=== PATIENT | female | born 1955 | race Caucasian/White ===

== ENCOUNTER → 2019-07-07 | Outpatient (CLI) | payer BC | LOC: CARD 08:52 | PROVIDERS: ATTEND Internal Medicine Cardiovascular Disease | DX: I35.1 Nonrheumatic aortic (valve) insufficiency (principal); I10 Essential (primary) hypertension; E78.5 Hyperlipidemia, unspecified; I65.23 Occlusion and stenosis of bilateral carotid arteries; Z87.891 Personal history of nicotine dependence | CPT/HCPCS: 93306 ==

== ENCOUNTER → 2019-07-25 | Outpatient (CLI) | payer BC ==
[~2019-07-25] VITALS: Ht 165 cm; Wt 81.0 kg
[~2019-07-25] MED LIST: REGADENOSON 0.4 MG/5 ML SYR (LEXISCAN) IV ONE
[2019-07-25] MEDS: CATHETER FLUSH 10 ML SYR IV PRN ×2 (07:30→07:43)
[2019-07-25 08:51] VITALS: BP 148/79
--- NOTE | 2019-07-26 09:40 | STRESS TEST ---
DATE OF SERVICE: 07/25/2019 RESTING AND POST REGADENOSON TECHNETIUM-99M TETROFOSMIN SPECT CT IMAGING. CLINICAL DIAGNOSIS: Chest discomfort. ORDERING PHYSICIAN: Dr. Mobley. PRIMARY PHYSICIAN: Dr. Jama. CLINICAL DIAGNOSIS: Baseline images were carried out after injection of 10.10 mCi of technetium-99m Tetrofosmin. This was followed by 0.4 mg Regadenoson and 30 mCi of technetium-99m Tetrofosmin for stress imaging. The electrocardiogram showed sinus rhythm at baseline and it did not change significantly with Regadenoson infusion. The patient tolerated the procedure well. Review of images at rest and following stress indicates a small anteroapical perfusion defect that appears transient. Gated images show normal global left ventricular systolic function, normal regional wall motion. Left ventricular ejection fraction is calculated to be 80%. Left ventricular end diastolic volume is 36 mL. TID is absent (1.07). CONCLUSIONS: 1. Small amount of anteroapical ischemia is indicated on this study. 2. No regional wall motion abnormality. 3. Normal to hyperdynamic left ventricular systolic function with a calculated ejection fraction of 80%. Job ID: [id number] DocumentID: [id number] Dictated Date: 07/26/2019 08:36:00 Motor Vehicle License Clerk Date: 07/26/2019 09:39:53 Dictated By: JENNA MOBLEY MD, MA, FACP, FACC,
== END ==
LOC: CARD 07:04
PROVIDERS: ATTEND Internal Medicine Cardiovascular Disease
DX: I25.89 Other forms of chronic ischemic heart disease (principal); I10 Essential (primary) hypertension; E78.5 Hyperlipidemia, unspecified; I65.29 Occlusion and stenosis of unspecified carotid artery; Z87.891 Personal history of nicotine dependence
CPT/HCPCS: 78452; 93017

== ENCOUNTER 2019-11-07 09:49 | Day surgery (SDC) | payer BC ==
[2019-11-07] VITALS (10 sets, daily range): BP systolic 127–152; BP diastolic 60–85
[~2019-11-07] VITALS: Ht 165 cm; Wt 82.0 kg
[2019-11-07] MEDS ORDERED: HEParin (CATH LAB) 2,000 ML IV ONE (10:00)
[2019-11-07] MEDS ORDERED: LIDOCAINE 1% INJ 20 ML 20 ML VIAL ONE (10:00)
[2019-11-07] MEDS ORDERED: NS IV 1000 ML 1,000 ML ONE (10:00)
[2019-11-07] MEDS ORDERED: NS IV 1000 ML 1,000 ML IV SCH ×2 (10:15→14:15)
[2019-11-07 10:28] LABS: HEMOGLOBIN 12.2 G/DL (11.5-16.0); RED CELL DISTRIBUTION WIDTH 13.8 % (10.0-14.5); WHITE BLOOD COUNT 4.1 10^3/uL (4.3-11.0)
[2019-11-07] MEDS ORDERED: FIBER CHOICE PO (10:40)
[2019-11-07] MEDS ORDERED: MTP100TCR PO (10:40)
[2019-11-07] MEDS ORDERED: ASPI-999 PO (10:40)
[2019-11-07] MEDS ORDERED: AMLO5TAB9 PO (10:40)
[2019-11-07] MEDS ORDERED: MULT-1136 PO ×2 (10:44→10:47)
[2019-11-07] MEDS ORDERED: NF-ESOM40C PO (10:44)
[2019-11-07] MEDS ORDERED: LORA-404 PO (10:44)
[2019-11-07] MEDS ORDERED: TRAM50TA3 PO (10:44)
[2019-11-07] MEDS ORDERED: FEXO1TAB43 PO (10:44)
[2019-11-07] MEDS ORDERED: MIRA50TA PO (10:44)
[2019-11-07] MEDS ORDERED: IRON45TA6 PO (10:44)
[2019-11-07] MEDS ORDERED: ROSU10TA22 PO (10:45)
[2019-11-07] MEDS ORDERED: ESCI10TA PO (10:45)
[2019-11-07 10:50] LABS: INR 0.9 (0.8-1.4); PROTHROMBIN TIME PATIENT 12.5 SEC (12.2-14.7)
[2019-11-07 10:56] LABS: ALANINE AMINOTRANSFERASE 26 U/L (0-55); ALBUMIN 4.4 GM/DL (3.2-4.5); ALKALINE PHOSPHATASE 84 U/L (40-136); BILIRUBIN,TOTAL 0.5 MG/DL (0.1-1.0); BUN/CREATININE RATIO 14; CALCIUM 9.3 MG/DL (8.5-10.1); CARBON DIOXIDE 28 MMOL/L (21-32); CHLORIDE 107 MMOL/L (98-107); CHOLESTEROL 142 MG/DL (< 200); CREATININE SERUM 0.83 MG/DL (0.60-1.30); GFR ESTIMATED > 60; GLUCOSE 127 MG/DL (70-105); HDL CHOLESTEROL 47 MG/DL (40-60); POTASSIUM 3.9 MMOL/L (3.6-5.0); SODIUM 144 MMOL/L (135-145); TOTAL PROTEIN 7.1 GM/DL (6.4-8.2); TRIGLYCERIDES 112 MG/DL (<150); VLDL CHOLESTEROL 22 MG/DL (5-40)
--- OUTSIDE RECORDS SUMMARY | 2019-11-07 11:05 | XMS REPORT | Continuity of Care Document ---
Demographics Preferred Language Unknown Marital Status Unknown Orthodox Affiliation Unknown Race Unknown Ethnic Group Unknown Author Organization Unknown Address Unknown Phone Unavailable Allergies Active Description Code Type Severity Reaction Onset Reported/Identified Relationship to Patient Clinical Status Yes NO KNOWN DRUG ALLERGIES NO KNOWN DRUG ALLERG UNKNOWN Yes NO KNOWN DRUG ALLERGIES UNKNOWN NO KNOWN DRUG ALLERG Yes NO KNOWN DRUG ALLERGIES UNKNOWN UNKNOWN Yes No Allergy Information Available [id number] Drug Allergy Unknown N/A 020 Medications Medication Packaging Start Date St op Date Route Dosage Sig ONDANSETRON VIAL INJ 4 MG/2CC (ZOFRAN 2CC VIAL) MG 06/08/2016 06/15/2016 PRN Q4H KETOROLAC VIAL INJ 30 MG/CC (TORADOL VIAL) MG 06/08/2016 06/08/2016 ONCE&1220 NORMAL SALINE 1000CC IV BAG INJ 0.9 % (NS 1000CC IV BAG) ml 06/08/2016 06/08/2016 ONCE&1323 ACETAMINOPHEN ORAL TABLET 325mg(Tylenol) MG 06/08/2016 06/08/2016 PRN ONCE Problems Date Dx Coded Attending Type Code Diagnosis Diagnosed By 08/02/2013 JOON BUSTAMANTE Ot 288.50 LEUKOCYTOPENIA, UNSPECIFIED 02/24/2016 Ot 288.50 PACHECO KOCYTOPENIA, UNSPECIFIED 02/28/2016 Ot 288.50 PACHECO KOCYTOPENIA, UNSPECIFIED 03/04/2016 Ot 288.50 PACHECO KOCYTOPENIA, UNSPECIFIED 06/08/2016 Maria Ines Jama 346.90 MIGRAINE, UNSPECIFIED, WITHOUT MENTION OF INTRACTABLE MIGRAINE, WITHOUT MENTION OF STATUS MIGRAINOSUS 06/08/2016 Maria Ines Jama 461.9 ACUTE SINUSITIS, UNSPECIFIED 06/08/2016 Maria Ines Jama G43.909 MIGRAINE, UNSP, NOT INTRACTABLE, WITHOUT STATUS MIGRAINOSUS 06/08/2016 Maria Ines Jama J01.90 ACUTE SINUSITIS, UNSPECIFIED 03/15/2017 W 250.00 LACEY BETES MELLITUS WITHOUT MENTION OF COMPLICATION, TYPE II OR UNSPECIFIED TYPE, NOT STATED UNCONTROLLED 03/15/2017 W 272.4 OTHE R AND UNSPECIFIED HYPERLIPIDEMIA 03/15/2017 W 796.4 OTHE R ABNORMAL CLINICAL FINDINGS 03/15/2017 W D72.819 DE CREASED WHITE BLOOD CELL COUNT, UNSPECIFIED 03/15/2017 W E11.9 TYPE 2 DIABETES MELLITUS WITHOUT COMPLICATIONS 03/15/2017 W E78.5 HYPE RLIPIDEMIA, UNSPECIFIED 04/12/2017 A 461.9 ACUT E SINUSITIS, UNSPECIFIED 04/12/2017 W 780.79 OTH ER MALAISE AND FATIGUE 04/12/2017 W 796.4 OTHE R ABNORMAL CLINICAL FINDINGS 04/12/2017 A J01.90 ACU TE SINUSITIS, UNSPECIFIED 04/12/2017 W R53.83 OTH ER FATIGUE 05/20/2017 Wiley Maria Ines W 250.00 DIABETES MELLITUS WITHOUT MENTION OF COMPLICATION, TYPE II OR UNSPECIFIED TYPE, NOT STATED UNCONTROLLED 05/20/2017 Wiley Maria Ines W 272.4 OTHER AND UNSPECIFIED HYPERLIPIDEMIA 05/20/2017 Wiley Maria Ines W 796.4 OTHER ABNORMAL CLINICAL FINDINGS 05/20/2017 Wiley Maria Ines W D72.819 DECREASED WHITE BLOOD CELL COUNT, UNSPECIFIED 05/20/2017 Wiley Maria Ines W E11.9 TYPE 2 DIABETES MELLITUS WITHOUT COMPLICATIONS 05/20/2017 Wiley, Maria Ines W E78.5 HYPERLIPIDEMIA, UNSPECIFIED 05/20/2017 Wiley, Maria Ines W 250.00 DIABETES MELLITUS WITHOUT MENTION OF COMPLICATION, TYPE II OR UNSPECIFIED TYPE, NOT STATED UNCONTROLLED 05/20/2017 Wiley Maria Ines W 272.4 OTHER AND UNSPECIFIED HYPERLIPIDEMIA 05/20/2017 Wiley Maria Ines W 796.4 OTHER ABNORMAL CLINICAL FINDINGS 05/20/2017 Wiley Maria Ines W D72.819 DECREASED WHITE BLOOD CELL COUNT, UNSPECIFIED 05/20/2017 Wiley Maria Ines W E11.9 TYPE 2 DIABETES MELLITUS WITHOUT COMPLICATIONS 05/20/2017 Maria Ines Jama W E78.5 HYPERLIPIDEMIA, UNSPECIFIED 06/14/2017 Michelle Jamaa W 780.79 OTHER MALAISE AND FATIGUE 06/14/2017 Wiley Maria Ines W R53.83 OTHER FATIGUE 06/14/2017 Michelle Jamaa W 780.79 OTHER MALAISE AND FATIGUE 06/14/2017 Wiley Maria Ines W R53.83 OTHER FATIGUE 10/04/2017 Maria Ines Jama W 796.4 OTHER ABNORMAL CLINICAL FINDINGS 10/04/2017 Wiley, Maria Ines W 796.4 OTHER ABNORMAL CLINICAL FINDINGS 11/12/2017 Wiley, Maria Ines W 401.9 UNSPECIFIED ESSENTIAL HYPERTENSION 11/12/2017 Wiley, Maria Ines W I10 ESSENTIAL (PRIMARY) HYPERTENSION 11/12/2017 W 401.9 UNSP ECIFIED ESSENTIAL HYPERTENSION 11/12/2017 W 789.00 ABD OMINAL PAIN, UNSPECIFIED SITE 11/12/2017 W I10 ESSENT IAL (PRIMARY) HYPERTENSION 11/12/2017 W R10.13 EPI GASTRIC PAIN 11/12/2017 Wiley, Maria Ines W 401.9 UNSPECIFIED ESSENTIAL HYPERTENSION 11/12/2017 Wiley, Maria Ines W I10 ESSENTIAL (PRIMARY) HYPERTENSION 11/16/2017 Wiley, Maria Ines W 789.00 ABDOMINAL PAIN, UNSPECIFIED SITE 11/16/2017 Wiley, Maria Ines W R10.13 EPIGASTRIC PAIN 11/16/2017 Wiley, Maria Ines W 789.00 ABDOMINAL PAIN, UNSPECIFIED SITE 11/16/2017 Wiley, Maria Ines W R10.13 EPIGASTRIC PAIN 11/19/2017 Wiley, Maria Ines W 401.9 UNSPECIFIED ESSENTIAL HYPERTENSION 11/19/2017 Wiley, Maria Ines W 789.00 ABDOMINAL PAIN, UNSPECIFIED SITE 11/19/2017 Wiley, Maria Ines W I10 ESSENTIAL (PRIMARY) HYPERTENSION 11/19/2017 Wiley, Maria Ines W R10.13 EPIGASTRIC PAIN 11/19/2017 Wiley, Maria Ines W 401.9 UNSPECIFIED ESSENTIAL HYPERTENSION 11/19/2017 Wiley, Maria Ines W 789.00 ABDOMINAL PAIN, UNSPECIFIED SITE 11/19/2017 Wiley, Maria Ines W I10 ESSENTIAL (PRIMARY) HYPERTENSION 11/19/2017 Wiley, Maria Ines W R10.13 EPIGASTRIC PAIN 06/27/2019 Ot 288.50 PACHECO KOCYTOPENIA, UNSPECIFIED 07/07/2019 Ot 288.50 PACHECO KOCYTOPENIA, UNSPECIFIED 07/11/2019 SMITA RAMIREZ FACC, JENNA TURNERP CCDS Ot E78.5 HYPERLIPIDEMIA, UNSPECIFIED 07/11/2019 SMITA RAMIREZ FACC, JENNA TURNERP CCDS Ot I10 ESSENTIAL (PRIMARY) HYPERTENSION 07/11/2019 SMITA RAMIREZ FACC, JENNA OLIVER CCDS Ot I35.1 NONRHEUMATIC AORTIC (VALVE) INSUFFICIENC 07/11/2019 SMITA RAMIREZ [facility], ALI FACP CCDS Ot I65.23 OCCLUSION AND STENOSIS OF BILATERAL [place] 07/11/2019 SMITA RAMIREZ [facility], ALI FACP CCDS Ot Z87.891 PERSONAL HISTORY OF NICOTINE DEPENDENCE 07/20/2019 SMITA RAMIREZ FACC, ALI FACP CCDS Ot E78.5 HYPERLIPIDEMIA, UNSPECIFIED 07/20/2019 SMITA RAMIREZ FACC, ALI FACP CCDS Ot I10 ESSENTIAL (PRIMARY) HYPERTENSION 07/20/2019 SMITA RAMIREZ [facility], ALI FACP CCDS Ot I35.1 NONRHEUMATIC AORTIC (VALVE) INSUFFICIENC 07/20/2019 SMITA RAMIREZ [facility], ALI FACP CCDS Ot I65.23 OCCLUSION AND STENOSIS OF BILATERAL [place] 07/20/2019 SMITA RAMIREZ [facility], ALI FACP CCDS Ot Z87.891 PERSONAL HISTORY OF NICOTINE DEPENDENCE 07/24/2019 Ot 288.50 PACHECO KOCYTOPENIA, UNSPECIFIED 07/24/2019 SMITA RAMIREZ [facility], ALI FACP CCDS Ot E78.5 HYPERLIPIDEMIA, UNSPECIFIED 07/24/2019 SMITA RAMIREZ [facility], ALI FACP CCDS Ot I10 ESSENTIAL (PRIMARY) HYPERTENSION 07/24/2019 SMITA RAMIREZ [facility], ALI FACP CCDS Ot I35.1 NONRHEUMATIC AORTIC (VALVE) INSUFFICIENC 07/24/2019 SMITA RAMIREZ [facility], ALI FACP CCDS Ot I65.23 OCCLUSION AND STENOSIS OF BILATERAL [place] 07/24/2019 SMITA RAMIREZ [facility], ALI FACP CCDS Ot Z87.891 PERSONAL HISTORY OF NICOTINE DEPENDENCE 07/25/2019 Ot 288.50 PACHECO KOCYTOPENIA, UNSPECIFIED 07/27/2019 SMITA RAMIREZ [facility], ALI FACP CCDS Ot E78.5 HYPERLIPIDEMIA, UNSPECIFIED 07/27/2019 SMITA RAMIREZ [facility], ALI FACP CCDS Ot I10 ESSENTIAL (PRIMARY) HYPERTENSION 07/27/2019 SMITA RAMIREZ [facility], ALI FACP CCDS Ot I25.89 OTHER FORMS OF CHRONIC ISCHEMIC HEART DI 07/27/2019 SMITA RAMIREZ FACC, ALI FACP CCDS Ot I65.29 OCCLUSION AND STENOSIS OF UNSPECIFIED CA 07/27/2019 SMITA RAMIREZ [facility], ALI FACP CCDS Ot Z87.891 PERSONAL HISTORY OF NICOTINE DEPENDENCE 07/31/2019 [facility], ALI FACP CCDS Ot E78.5 HYPERLIPIDEMIA, UNSPECIFIED 07/31/2019 [facility], [facility] FACP CCDS Ot I10 ESSENTIAL (PRIMARY) HYPERTENSION 07/31/2019 [facility], ALI FACP CCDS Ot I25.89 OTHER FORMS OF CHRONIC ISCHEMIC HEART DI 07/31/2019 [facility], ALI FACP CCDS Ot I65.29 OCCLUSION AND STENOSIS OF UNSPECIFIED CA 07/31/2019 [facility], ALI FACP CCDS Ot Z87.891 PERSONAL HISTORY OF NICOTINE DEPENDENCE 08/07/2019 [facility], ALI FACP CCDS Ot E78.5 HYPERLIPIDEMIA, UNSPECIFIED 08/07/2019 [facility], ALI FACP CCDS Ot I10 ESSENTIAL (PRIMARY) HYPERTENSION 08/07/2019 [facility], ALI FACP CCDS Ot I25.89 OTHER FORMS OF CHRONIC ISCHEMIC HEART DI 08/07/2019 [facility], ALI FACP CCDS Ot I65.23 OCCLUSION AND STENOSIS OF BILATERAL [place] 08/07/2019 [facility], ALI FACP CCDS Ot Z87.891 PERSONAL HISTORY OF NICOTINE DEPENDENCE 08/25/2019 [facility], ALI FACP CCDS Ot E78.5 HYPERLIPIDEMIA, UNSPECIFIED 08/25/2019 [facility], ALI FACP CCDS Ot I10 ESSENTIAL (PRIMARY) HYPERTENSION 08/25/2019 [facility], ALI FACP CCDS Ot I25.89 OTHER FORMS OF CHRONIC ISCHEMIC HEART DI 08/25/2019 [facility], ALI FACP CCDS Ot I65.23 OCCLUSION AND STENOSIS OF BILATERAL [place] 08/25/2019 [facility], ALI FACP CCDS Ot Z87.891 PERSONAL HISTORY OF NICOTINE DEPENDENCE Procedures There is no data. Results Test Result Range Comprehensive Metabolic Panel - 04/26/16 09:50 Albumin 4.4 g/dL 3.6-5.1 ALP 71 U/L 35-130 ALT 23 U/L 6-45 Anion Gap 15 6-14 AST 24 U/L 2-40 BUN 11 mg/dL 5-25 Calcium 9.4 mg/dL 8.3-10.4 Chloride 108 mmol/L 95-114 CO2 24 mEq/L 22-33 Creat 0.80 mg/dL 0.50-1.50 eGFR 73 mL/min/1.73m2 >59 Globulin 2.1 g/dL 2.3-3.5 Glucose 125 mg/dL 70-110 Osmo 294 280-295 Potassium 4.5 mmol/L 3.5-5.3 Sodium 142 mmol/L 134-148 TBil 0.5 mg/dL 0.2-1.2 TP 6.5 g/dL 6.0-8.3 Lipid Panel - 04/26/16 09:50 C/HDL 3.4 3.7-6.7 Cholesterol 149 mg/dL 100-240 HDL 44 mg/dL 30-85 LDL-Calculated 79 mg/dL 0-100 Trig 128 mg/dL 35-160 VLDL 26 mg/dL 0-42 Comprehensive Metabolic Panel - 06/08/16 12:29 Albumin 4.5 g/dL 3.6-5.1 ALP 61 U/L 35-130 ALT 24 U/L 6-45 Anion Gap 16 6-14 AST 22 U/L 2-40 BUN 9 mg/dL 5-25 Calcium 9.4 mg/dL 8.3-10.4 Chloride 105 mmol/L 95-114 CO2 25 mEq/L 22-33 Creat 0.78 mg/dL 0.50-1.50 eGFR 75 mL/min/1.73m2 >59 Globulin 2.6 g/dL 2.3-3.5 Glucose 105 mg/dL 70-110 Osmo 292 280-295 Potassium 3.9 mmol/L 3.5-5.3 Sodium 142 mmol/L 134-148 TBil 0.7 mg/dL 0.2-1.2 TP 7.1 g/dL 6.0-8.3 Peripheral Smear - 09/30/16 10:55 Peripheral smear Sent to [facility] for rev iew Hemoglobin A1C - 12/11/16 06:55 % A1C 6.40 % 5.40-6.60 AvGlu 149 mg/dL 70-110 Pap IG, rfx HPV ASCU - 03/15/17 17:35 DIAGNOSIS: Comment Specimen adequacy: Comment Performed by: Comment . . Note: Comment Test Methodology: TNP . Comment Lipid Panel - 05/20/17 11:10 C/HDL 4.0 3.7-6.7 Cholesterol 182 mg/dL 100-240 HDL 46 mg/dL 30-85 LDL-Calculated 101 mg/dL 0-100 Trig 175 mg/dL 35-160 VLDL 35 mg/dL 0-42 VIT B-12 - 06/14/17 07:08 Vitamin B12 370.00 pg/mL 213.00-816.00 CBC with Auto Diff - 10/04/17 16:42 Baso% 0.90 % 0.00-2.50 Eos 0.1 K/uL 0.0-0.7 Eos% 2.7 % 0.0-7.0 Hct 37.6 % 36.0-46.0 Hgb 12.5 g/dL 13.0-15.0 Lym 1.07 K/uL 0.60-3.40 Lym% 32.3 % 10.0-50.0 MCH 29.8 pg 27.0-31.0 MCHC 33.2 g/dL 32.0-36.0 MCV 89.5 fL 80.0-97.0 [place]% 13.0 % 0.0-12.0 MPV 9.9 fL 7.4-10.0 Darrel% 51.1 % 37.0-80.0 Plt 329 K/uL 150-400 RBC 4.20 M/uL 3.60-5.00 RDW 12.8 % 11.6-14.8 WBC 3.31 K/uL 5.00-10.00 Darrel 1.69 K/uL 2.00-6.90 [place] 0.4 K/uL 0.0-0.9 Baso 0.0 K/uL 0.0-0.2 BMP - 11/12/17 10:52 Anion Gap 17 6-14 BUN 15 mg/dL 5-25 Calcium 9.4 mg/dL 8.3-10.4 Chloride 104 mmol/L 95-114 CO2 25 mEq/L 22-33 Creat 0.79 mg/dL 0.50-1.50 eGFR 74 mL/min/1.73m2 >59 Glucose 100 mg/dL 70-110 Osmo 294 280-295 Potassium 3.6 mmol/L 3.5-5.3 Sodium 142 mmol/L 134-148 Renal Panel - 11/19/17 07:16 Albumin 4.3 g/dL 3.6-5.1 BUN 11 mg/dL 5-25 Calcium 9.5 mg/dL 8.3-10.4 Chloride 106 mmol/L 95-114 CO2 24 mEq/L 22-33 Creat 0.84 mg/dL 0.50-1.50 eGFR 69 mL/min/1.73m2 >59 Glucose 133 mg/dL 70-110 Phosphorus 4.0 mg/dL 2.5-4.8 Potassium 4.2 mmol/L 3.5-5.3 Sodium 142 mmol/L 134-148 Thyroid Stimulating Hormone - 10/12/18 1 2:35 TSH 1.65 mIU/mL 0.32-5.00 Thyroid Stimulating Hormone - 03/31/19 1 0:48 TSH 0.98 mIU/mL 0.32-5.00 CBC with Auto Diff - 05/23/19 12:54 Baso% 0.60 % 0.00-2.50 Eos 0.1 K/uL 0.0-0.7 Eos% 2.6 % 0.0-7.0 Hct 37.3 % 36.0-46.0 Hgb 12.4 g/dL 13.0-15.0 Lym 0.83 K/uL 0.60-3.40 Lym% 24.1 % 10.0-50.0 MCH 30.7 pg 27.0-31.0 MCHC 33.2 g/dL 32.0-36.0 MCV 92.3 fL 80.0-97.0 [place]% 11.0 % 0.0-12.0 MPV 10.4 fL 7.4-10.0 Darrel% 61.7 % 37.0-80.0 Plt 310 K/uL 150-400 RBC 4.04 M/uL 3.60-5.00 RDW 12.8 % 11.6-14.8 WBC 3.44 K/uL 5.00-10.00 Darrel 2.12 K/uL 2.00-6.90 [place] 0.4 K/uL 0.0-0.9 Baso 0.0 K/uL 0.0-0.2 Comprehensive Metabolic Panel - 10/25/19 15:21 Albumin 4.4 g/dL 3.6-5.1 ALP 79 U/L 35-130 ALT 22 U/L 6-45 Anion Gap 14 6-14 AST 21 U/L 2-40 BUN 17 mg/dL 5-25 Calcium 8.8 mg/dL 8.3-10.4 Chloride 106 mmol/L 95-114 CO2 27 mEq/L 22-33 Creat 0.75 mg/dL 0.50-1.50 eGFR 78 mL/min/1.73m2 >59 Globulin 2.3 g/dL 2.3-3.5 Glucose 88 mg/dL 70-110 Osmo 296 280-295 Potassium 4.0 mmol/L 3.5-5.3 Sodium 143 mmol/L 134-148 TBil 0.4 mg/dL 0.2-1.2 TP 6.7 g/dL 6.0-8.3 Automated blood complete blood count (he mogram) panel - 11/07/19 10:21 Blood leukocytes automated count (number/volume) 4.1 10*3/uL 4.3-11.0 Blood erythrocytes automated count (number/volume) 4.20 10*6/uL 4.35-5.85 Venous blood hemoglobin measurement (mass/volume) 12.2 g/dL 11.5-16.0 Blood hematocrit (volume fraction) 38 % 35-52 Automated erythrocyte mean corpuscular volume 90 [ foz_us] 80-99 Automated erythrocyte mean corpuscular h emoglobin (mass per erythrocyte) 29 pg 25-34 Automated erythrocyte mean corpuscular h emoglobin concentration measurement (mass/volume) 32 g/dL 32-36 Automated erythrocyte distribution width ratio 13. 8 % 10.0- 14.5 Automated blood platelet count (count/volume) 326 10*3/uL 130-400 Automated blood platelet mean volume measurement 10.0 [foz_us] 7.4-10.4 Comprehensive metabolic panel - 11/07/19 10:21 Serum or plasma sodium measurement (moles/volume) 144 mmol/L 135-145 Serum or plasma potassium measurement (moles/volume) 3.9 mmol/L 3.6-5.0 Serum or plasma chloride measurement (moles/volume) 107 mmol/L 98-107 Carbon dioxide 28 mmol/L 21-32 Serum or plasma anion gap determination (moles/volume) 9 mmol/L 5-14 Serum or plasma urea nitrogen measurement (mass/volume ) 12 mg/dL 7-18 Serum or plasma creatinine measurement (mass/volume) 0.83 mg/dL 0.60-1.30 Serum or plasma urea nitrogen/creatinine mass ratio 14 NRG Serum or plasma creatinine measurement w ith calculation of estimated glomerular filtration rate > NRG Serum or plasma glucose measurement (mass/volume) 127 mg/dL 70-105 Serum or plasma calcium measurement (mass/volume) 9.3 mg/dL 8.5-10.1 Serum or plasma total bilirubin measurement (mass/volu me) 0.5 mg/dL 0.1-1.0 Serum or plasma alkaline phosphatase toby surement (enzymatic activity/volume) 84 U/L 40-136 Serum or plasma aspartate aminotransfera se measurement (enzymatic activity/volume) 25 U/L 5-34 Serum or plasma alanine aminotransferase measurement (enzymatic activity/volume) 26 U/L 0-55 Serum or plasma protein measurement (mass/volume) 7.1 g/dL 6.4-8.2 Serum or plasma albumin measurement (mass/volume) 4.4 g/dL 3.2-4.5 CALCIUM CORRECTED 9.0 mg/dL 8.5-10.1 Lipid 1996 panel - 11/07/19 10:21 Serum or plasma triglyceride measurement (mass/volume) 112 mg/dL <150 Serum or plasma cholesterol measurement (mass/volume) 142 mg/dL < 200 Serum or plasma cholesterol in HDL measurement (mass/v olume) 47 mg/dL 40-60 Cholesterol in LDL [mass/volume] in serum or plasma by direct assay 92 mg/dL 1-129 Serum or plasma cholesterol in VLDL measurement (mass/ volume) 22 mg/dL 5-40 PT panel in platelet poor plasma by coag ulation assay - 11/07/19 10:21 Prothrombin time (PT) in platelet poor plasma by coagu lation assay 12.5 s 12.2-14.7 INR in platelet poor plasma or blood by coagulation as say 0.9 0.8-1.4 Activated partial thromboplastin time (a PTT) in platelet poor plasma bycoagulation assay - 11/07/19 10:21 Activated partial thromboplastin time (a PTT) in platelet poor plasma bycoagulation assay 30 s 24-35 Encounters ACCT No. Visit Date/Time Discharge Status Pt. Type Provider Facility Loc./Unit Complaint [id number] 03/19/2017 14:17:00 Document Registration [id number] 07/25/2019 07:04:00 020 23:59:59 CLS Outpatient SMITA RAMIREZ FACC, ALI FACP CC DS Via [facility] CARD CHEST DISCOMFORT,HYPERTENSION [id number] 07/07/2019 08:52:00 020 23:59:59 CLS Outpatient SMITA RAMIREZ FACDanay, JENNA OLIVER CC DS [facility] CARD CHEST DISCOMFORT,HYPERTENSION [id number] 05/04/2013 13:32:00 014 00:01:00 DIS Outpatient DIANNA JOON Muse ia [facility] ONC [id number] 11/29/2012 17:38:00 013 23:59:59 CLS Outpatient [id number] 10/12/2012 17:20:00 013 23:59:59 CLS Outpatient [id number] 11/07/2019 12:00:00 P EN Preadmit SMITA RAMIREZ FACC, JENNA OLIVER CCDS [facility] CATH ANGINA,SOB,ABN STRESS TEST,H TN,FATIGUE [id number] 03/01/2014 00:00:00 Document Registration [id number] 10/25/2019 15:11:00 10/25/2019 23:59 :00 DIS Outpatient Maria Ines Jama [id number] 10/25/2019 13:50:00 10/25/2019 23:59 :00 DIS Outpatient Maria Ines Jama [id number] 05/23/2019 12:49:00 05/23/2019 23:59 :00 DIS Outpatient Maria Ines Jama [id number] 03/31/2019 10:44:00 03/31/2019 23:59: 00 DIS Outpatient Cristy Arevalo [id number] 03/31/2019 08:59:00 03/31/2019 23:59: 00 DIS Outpatient Cristy Arevalo [id number] 10/12/2018 12:26:00 10/12/2018 23:59: 00 DIS Outpatient Maria Ines Jama [id number] 11/19/2017 07:12:00 11/19/2017 23:59: 00 DIS Outpatient Maria Ines Jama [id number] 11/16/2017 09:02:00 11/16/2017 23:59: 00 DIS Outpatient Maria Ines Jama [id number] 11/12/2017 10:50:00 11/12/2017 23:59: 00 DIS Outpatient Maria Ines Jama [id number] 10/04/2017 16:29:00 10/04/2017 23:59: 00 DIS Outpatient Maria Ines Jama [id number] 06/14/2017 07:05:00 06/14/2017 23:59: 00 DIS Outpatient Maria Ines Jama [id number] 05/20/2017 11:01:00 05/20/2017 23:59: 00 DIS Outpatient Maria Ines Jama [id number] 03/15/2017 18:31:00 03/15/2017 23:59: 00 DIS Outpatient Maria Ines Jama [id number] 03/15/2017 13:03:00 03/15/2017 23:59: 00 DIS Outpatient Maria Ines Jama [id number] 12/11/2016 06:49:00 12/11/2016 23:59: 00 DIS Outpatient Maria Ines Jama [id number] 10/01/2016 08:33:00 10/01/2016 23:59: 00 DIS Outpatient Maria Ines Jama [id number] 09/30/2016 10:49:00 09/30/2016 23:59: 00 DIS Outpatient Maria Ines Jama [id number] 06/08/2016 12:17:00 06/08/2016 16:50: 00 DIS Outpatient Maria Ines Jama [id number] 04/26/2016 09:49:00 04/26/2016 23:59: 00 DIS Outpatient Maria Ines Jama [id number] 02/27/2019 17:52:03 Document Registration [id number] 11/12/2017 10:01:00 Document Registration [id number] 03/15/2017 11:15:00 Document Registration [id number] 06/08/2016 13:24:30 Document Registration
[2019-11-07] MEDS ORDERED: MIDAZOLAM 5 MG/5 ML (VERSED) VIAL ONE (13:26)
[2019-11-07] MEDS ORDERED: fentaNYL INJECTION 100 MCG/2 ML AMP ONE (13:26)
[2019-11-07] MEDS ORDERED: PATIENT MAY USE OWN MEDS, ALL PO SCH (14:15)
--- NOTE | 2019-11-07 14:15 | Cardiac Procedure Note-CS/ASA ---
Pre-Procedure Note Pre-Op Procedure Note H&P Reviewed The H&P was reviewed, patient examined and no changes noted. Date H&P Reviewed: Nov 07, 2019 Time H&P Reviewed: 13:30 Conscious Sedation Pre-Proced Time 13:30 ASA Score 3 For ASA 3 and 4: Consider anesthesia and medical clearance. Also, for patients with a history of failed moderate sedation consider anesthesia. Airway Lungs Heart ASA score ASA 1: a normal healthy patient ASA 2: a patient with a mild systemic disease (mid diabetes, controlled hypertension, obesity ASA 3: a patient with a severe systemic disease that limits activity (angina, COPD, prior Myocardial infarction) ASA 4: a patient with an incapacitating disease that is a constant threat to life (CHF, renal failure) ASA 5: a moribund patient not expected to survive 24 hrs. (ruptured aneurysm) ASA 6: a declared brain- patient whose organs are being harvested. For emergent operations, add the letter E after the classification Mallampati Classification Grade 2 Sedation Plan Analgesia, Amnesia, Plan communicated to team members, Discussed options with patient/fam, Discussed risks with patient/fam The patient is an appropriate candidate to undergo the planned procedure, sedation, and anesthesia. The patient immediately re-assessed prior to indication. JENNA ORDOÑEZ MD FACP FAC CCDS Nov 07, 2019 14:14
--- NOTE | 2019-11-07 14:21 | Discharge Inst-Cardiology ---
Discharge Inst-Cardiac Discharge Medications Continued Medications: Amlodipine Besylate (Amlodipine Besylate) 5 Mg Tablet 5 MG PO DAILY, TAB Aspirin (Aspirin) 81 Mg Tab.chew 81 MG PO DAILY, TAB Escitalopram Oxalate (Lexapro) 10 Mg Tablet 10 MG PO DAILY, TAB Esomeprazole Magnesium (Nexium) 40 Mg Cap 40 MG PO DAILY, CAP Fexofenadine/Pseudoephedrine (Ashley-D 24 Hour Tablet) 1 Each Tab.er.24h 1 EACH PO DAILY, TAB [Fiber Choice] () 1.5 GM PO DAILY Iron,Carbonyl (Feosol) 45 Mg Tablet 45 MG PO DAILY, TAB Lorazepam (Ativan) 0.5 Mg Tablet 0.5 MG PO DAILY, TAB Metoprolol Succinate (Metoprolol Succinate) 100 Mg Tab.er.24h 100 MG PO DAILY, TAB Mirabegron (Myrbetriq) 50 Mg Tab.er.24h 50 MG PO DAILY, TAB Multivitamin (Multivitamin) 1 Each Tablet 1 EACH PO DAILY, TAB Rosuvastatin Calcium (Crestor) 10 Mg Tablet 10 MG PO DAILY, TAB Tramadol HCl (Tramadol HCl) 50 Mg Tablet 50 MG PO DAILY, TAB JENNA ORDOÑEZ MD FACP FACC CCDS Nov 07, 2019 14:21
--- NOTE | 2019-11-07 14:21 | Discharge Inst-Post CATH ---
Discharge Inst-CATH/EP Post Cardiac Cath/EP D/C Inst Follow Up/Plan F/u with Dr Mobley in 2 weeks ACTIVITY * Go Home directly and rest. * Limit activity of the leg (or wrist if it was used) for 7 days including aerobics, swimming, jogging, bicycling, etc. * Restrict stair-climbing for 7 days if possible, if not, climb up with your n on-cath leg, then bring together on the same step. * Avoid lifting, pushing, pulling or excessive movement of the affected ex tremity for 7 days. * Customary sexual activity may be resumed after 2 days-use caution not to use a position that strains or causes pain to the affected extremity. * No driving for 24 hours. * NO SMOKING. * Avoid straining for bowel movements for 7 days. * Gentle walking on level ground is allowed. * Returning to work will depend on the type of procedure and the results. Your doctor will discuss this with you. CALL YOUR DOCTOR FOR ANY OF THE FOLLOWING: *If bleeding from the puncture site occurs- Apply gentle pressure to site with clean cloth and call your doctor or EMS. * If a knot or lump forms under the skin, increases in size, or causes pain. * If bruising appears to be worsening or moving further down your leg instead of disappearing. * Temperature above 101 F. CARE OF YOUR GROIN INCISION; * Bruising or purple discoloration of the skin near the puncture site is common. * You may shower only, no bathtub bathing for 5 days. Be careful to avoid slipping as your leg may feel stiff. * If a closure device was used on your femoral artery, please see the attached guide regarding care of the device and your leg. * Leave dressing on FOR 24 hours. CARE OF YOUR WRIST INCISION; * Bruising or purple discoloration of the skin near the puncture site is common. * You may shower. * DO NOT submerge wrist. * Leave dressing on FOR 24 hours. JENNA MOBLEY MD FACP FAC CCDS Nov 07, 2019 14:21
--- NOTE | 2019-11-07 14:34 | CARDIAC CATHETERIZATION ---
DATE OF SERVICE: 11/07/2019 CARDIAC CATHETERIZATION REPORT INDICATIONS: The patient is a 64-year-old lady with multiple coronary artery disease risk factors, who has symptoms of exertional shortness of breath and a myocardial perfusion imaging study was indicative of anteroapical ischemia. Cardiac catheterization was carried out after having obtained an informed consent. DESCRIPTION OF PROCEDURE: She was brought to the cardiac catheterization laboratory in a fasting state. Right groin was prepared and draped in the usual sterile fashion. Lidocaine 1% was used for local anesthesia. Modified Seldinger technique was used to advance a 5-Sami sheath in the right femoral artery, a 5-Sami JL4 catheter for left coronary angiography, 5-Sami JR4 catheter for right coronary angiography, 5-Sami pigtail catheter was used for left heart catheterization and left ventricular angiography. At the end of the procedure, angiography of the right femoral artery was carried out through the sheath. Mynx was used to achieve hemostasis. She tolerated the procedure well. HEMODYNAMICS: Left ventricular end-diastolic pressure following coronary angiography was 10 mmHg. There is no significant pressure gradient on pullback across the aortic valve. Ascending aortic pressure was 134/65 with a mean of 79 mmHg. CORONARY ANGIOGRAPHY: Left main coronary artery, left anterior descending artery, left circumflex artery and right coronary artery do not exhibit angiographically significant coronary artery disease. Right coronary artery is dominant. CONCLUSIONS: 1. No angiographically significant coronary artery disease. 2. Normal global left ventricular systolic function with an ejection fraction of 60% to 65%. 3. Normal left ventricular end-diastolic pressure. DISCUSSION AND RECOMMENDATIONS: Based on the results of the study, shortness of breath does not appear to be of cardiac origin. Recent myocardial perfusion imaging appears to have been false positive. Continuing risk factor modification is advised. Outpatient followup is advised. Job ID: [id number] DocumentID: [id number] Dictated Date: 11/07/2019 14:18:06 Fire Code Inspector Date: 11/07/2019 14:33:44 Dictated By: JENNA ORDOÑEZ MD, MA, FACP, FACC,
== END 2019-11-07 17:35 | disposition home or self-care (01) ==
LOC: CATH 09:49 → SDC 14:27 → CATH 17:35
PROVIDERS: ATTEND Internal Medicine Cardiovascular Disease
DX: R06.02 Shortness of breath (principal); I99.8 Other disorder of circulatory system; I10 Essential (primary) hypertension; K21.9 Gastro-esophageal reflux disease without esophagitis; K58.9 Irritable bowel syndrome, unspecified; E78.00 Pure hypercholesterolemia, unspecified; D72.819 Decreased white blood cell count, unspecified; E78.5 Hyperlipidemia, unspecified; G47.30 Sleep apnea, unspecified; F41.9 Anxiety disorder, unspecified; G47.00 Insomnia, unspecified; Z91.018 Allergy to other foods; Z91.048 Other nonmedicinal substance allergy status; Z88.2 Allergy status to sulfonamides; Z79.82 Long term (current) use of aspirin; Z79.899 Other long term (current) drug therapy; Z99.89 Dependence on other enabling machines and devices; Z90.710 Acquired absence of both cervix and uterus; Z98.51 Tubal ligation status; Z90.49 Acquired absence of other specified parts of digestive tract; Z90.89 Acquired absence of other organs; Z87.891 Personal history of nicotine dependence; Z80.0 Family history of malignant neoplasm of digestive organs; Z82.3 Family history of stroke; Z82.49 Family history of ischemic heart disease and other diseases of the circulatory system
CPT/HCPCS: 80053; 80061; 85027; 85610; 85730; 87081; 93458; C1760; C1894; 36415